=== PATIENT | male | born 1965 | race Two or more races ===

== ENCOUNTER 2018-03-25 11:23 | Inpatient (IN) | payer OTHER ==
[2018-03-25 13:45] VITALS: BMI 23.0
--- NOTE | 2018-03-25 16:26 | HP ---
CIWA Score - CIWA Score Nausea/Vomitin-Mild Nausea/No Vomiting Muscle Tremors: 2 Anxiety: 3 Agitation: 1-Slight > Activity Paroxysmal Sweats: 1-Minimal Palms Moist Orientation: 0-Oriented Tacttile Disturbances: 1-Very Mild Itch/Numbness Auditory Disturbances: 0-None Visual Disturbances: 0-None Headache: 3-Moderate CIWA-Ar Total Score: 12 Admission ROS S - HPI Chief Complaint: ETOH withdrawal symptoms Allergies/Adverse Reactions: Allergies Allergy/AdvReac Type Severity Reaction Status Date / Time No Known Allergies Allergy Verified 03/25/18 14:14 History of Present Illness: Patient present with ETOH withdrawal symptoms. Patient started drinking at age 12. Drinks up to 1/2 gallon of Rum daily. Denies seizures from ETOH withdrawal/ use. Denies significant PMH/PSH. This is patients first attempt at detox. Denies SI/HI and suicide attempts. Last drink was last night. Exam Limitations: No Limitations - Ebola screening Have you traveled outside of the country in the last 21 days: No (N) Have you had contact with anyone from an Ebola affected area: No Have you been sick,other than usual withdrawal symptoms: No Do you have a fever: No - Review of Systems Constitutional: Night Sweats, Changes in sleep EENT: reports: No Symptoms Reported Respiratory: reports: No Symptoms reported Cardiac: reports: No Symptoms Reported GI: reports: Nausea, Poor Fluid Intake, Abdominal cramping : reports: No Symptoms Reported Musculoskeletal: reports: Back Pain, Muscle Pain Integumentary: reports: Sweating Neuro: reports: Headache, Tremors Endocrine: reports: No Symptoms Reported Hematology: reports: No Symptoms Reported Psychiatric: reports: Orientated x3, Anxious, Depressed Patient History - Patient Medical History Hx Anemia: No Hx Asthma: No Hx Chronic Obstructive Pulmonary Disease (COPD): No Hx Cancer: No Hx Cardiac Disorders: No Hx Congestive Heart Failure: No Hx Hypertension: No Hx Hypercholesterolemia: No Hx Pacemaker: No HX Cerebrovascular Accident: No Hx Seizures: No Hx Dementia: No Hx Diabetes: No Hx Gastrointestinal Disorders: No Hx Liver Disease: No Hx Genitourinary Disorders: No Hx Sexually Transmitted Disorders: No Hx Renal Disease (ESRD): No Hx Thyroid Disease: No Hx Human Immunodeficiency Virus (HIV): No Hx Hepatitis C: No Hx Depression: No Hx Suicide Attempt: No Hx Bipolar Disorder: No Hx Schizophrenia: No - Patient Surgical History Past Surgical History: No Hx Neurologic Surgery: No Hx Cataract Extraction: No Hx Cardiac Surgery: No Hx Lung Surgery: No Hx Breast Surgery: No Hx Breast Biopsy: No Hx Abdominal Surgery: No Hx Appendectomy: No Hx Cholecystectomy: No Hx Genitourinary Surgery: No Hx Orthopedic Surgery: No Anesthesia Reaction: No - PPD History Previous Implant?: Yes Documented Results: Negative w/o proof Implanted On Prior [facility] Admission?: No PPD to be Administered?: Yes - Smoking Cessation Smoking history: Never smoked Hx Chewing Tobacco Use: No Initiated information on smoking cessation: No - Substance & Tx. History Hx Alcohol Use: Yes Hx Substance Use: No Substance Use Type: Alcohol Hx Substance Use Treatment: No - Substances Abused Alcohol-domenic Route: Oral Frequency: Daily Amount used: 2 pts. Age of first use: 12 Date of Last Use: 03/24/18 Family Disease History - Family Disease History Family History: Denies Admission Physical Exam [facility] - Vital Signs Vital Signs: Vital Signs - 24 hr 03/25/18 13:43 Temperature 98.2 F Pulse Rate 73 Respiratory 14 Rate Blood Pressure 151/95 - Physical General Appearance: Yes: No Apparent Distress, Nourished, Appropriately Dressed , Alcohol on Breath, Tremorous, Anxious HEENTM: Yes: EOMI, Hearing grossly Normal, Normal ENT Inspection, Normocephalic , Normal Voice, LANDY, Pharynx Normal Respiratory: Yes: Chest Non-Tender, Lungs Clear, Normal Breath Sounds, No Respiratory Distress, No Accessory Muscle Use Neck: Yes: No masses,lesions,Nodules, Supple Breast: Yes: Breast Exam Deferred Cardiology: Yes: Regular Rhythm, Regular Rate, S1, S2 Abdominal: Yes: Normal Bowel Sounds, Non Tender, Flat, Soft Genitourinary: Yes: Within Normal Limits Back: Yes: Normal Inspection, Muscle Spasm Musculoskeletal: Yes: full range of Motion, Gait Steady, Back pain Extremities: Yes: Normal Inspection, Normal Range of Motion, Non-Tender, Tremors 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
[2018-03-25] MEDS ORDERED: IBUPROFEN 400 MG TABLET (FP) PO PRN (16:34)
[2018-03-25] MEDS ORDERED: LOPERAMIDE HCL 2 MG CAPSULE PO PRN (16:34)
[2018-03-25] MEDS ORDERED: ACETAMINOPHEN 325 MG TABLET (FP) PO PRN (16:34)
[2018-03-25] MEDS ORDERED: MAG HYDROX/AL HYDROX/SIMETH 30 ML UNIT-DOSE CUP PO PRN (16:34)
[2018-03-25] MEDS ORDERED: MAGNESIUM HYDROX 2400MG/30ML ORAL SUSPENSION 30 ML CUP PO PRN (16:34)
[2018-03-25] MEDS ORDERED: MENTHOL/PHENOL 1 EACH UD MM PRN (16:34)
[2018-03-25] MEDS ORDERED: hydrOXYzine PAMOATE 50 MG CAPSULE (FP) PO PRN (16:34)
[2018-03-25] MEDS ORDERED: guaiFENesin/D-METHORPHAN HB 10 ML UNIT-DOSE CUPS PO PRN (16:34)
[2018-03-25] MEDS ORDERED: MAGNESIUM CITRATE 300 ML BOTTLE PO PRN (16:34)
[2018-03-25] MEDS ORDERED: P-EPHED 60MG/TRIPROLIDI 2.5MG TABLET PO PRN (16:34)
[2018-03-25] MEDS ORDERED: chlordiazePOXIDE HCL 25 MG CAPSULE PO PRN (16:36)
[2018-03-25] MEDS ORDERED: chlordiazePOXIDE HCL 25 MG CAPSULE PO ONE (18:30)
[2018-03-25] MEDS ORDERED: MELATONIN 5 MG TABLETS PO PRN (22:00)
[2018-03-25] MEDS: THIAMINE HCL 100 MG TABLET (FP) PO SCH (22:19)
[2018-03-25] MEDS: chlordiazePOXIDE HCL 25 MG CAPSULE PO SCH (22:19)
[2018-03-25 23:28] LABS: URINE APPEARANCE CLEAR; URINE BILIRUBIN NEGATIVE (<2.0 mg/dL); URINE BLOOD 1+ (NEGATIVE); URINE COLOR LTYELLOW; URINE GLUCOSE (UA) NEGATIVE (NEGATIVE); URINE KETONE NEGATIVE (NEGATIVE); URINE LEUK ESTERASE NEGATIVE (NEGATIVE); URINE NITRITE NEGATIVE (NEGATIVE); URINE PROTEIN NEGATIVE (NEGATIVE); URINE UROBILINOGEN NEGATIVE mg/dL (0.2-1.0)
[2018-03-25 23:33] LABS: EPI CELLS RARE /HPF (FEW); URINE HYALINE CAST 3 /lpf; URINE MUCUS RARE
[2018-03-26] MEDS: chlordiazePOXIDE HCL 25 MG CAPSULE PO SCH ×4 (06:25→22:20)
[2018-03-26] MEDS: PRENATAL VITAMINS W/ FOLIC ACID TABLET (FP) PO SCH (10:07)
[2018-03-26 10:11] LABS: HEMATOCRIT 44.9 % (35.4-49); MCH 34.1 pg (25.7-33.7); MCHC 33.3 g/dl (32.0-35.9); MEAN CELL VOLUME 102.4 fl (80-96); MEAN PLT VOLUME 8.7 fl (7.5-11.1); PLATELET COUNT 179 K/MM3 (134-434); RBC 4.38 M/mm3 (4.00-5.60); RDW 13.7 % (11.9-15.9); WHITE BLOOD COUNT 3.2 K/mm3 (4.0-10.0)
[2018-03-26 10:51] LABS: CHLORIDE 100 mmol/L (98-107); POTASSIUM 4.1 mmol/L (3.5-5.1); SODIUM 140 mmol/L (136-145)
[2018-03-26 12:25] LABS: ALBUMIN 4.5 g/dl (3.4-5.0); ALK PHOS 73 U/L (45-117); ANION GAP 11 (8-16); BILIRUBIN,TOTAL 0.8 mg/dL (0.2-1.0); BLOOD UREA NITROGEN 14 mg/dL (7-18); CALCIUM 9.2 mg/dL (8.5-10.1); CO2 29 mmol/L (21-32); CREATININE 0.9 mg/dL (0.7-1.3); GLUCOSE,RANDOM 91 mg/dL (74-106); SGOT/AST 60 U/L (15-37); SGPT/ALT 59 U/L (12-78); TOT PROT 8.2 g/dl (6.4-8.2)
--- NOTE | 2018-03-26 12:25 | EKG ---
Test Reason : Blood Pressure : / mmHG Vent. Rate : 069 BPM Atrial Rate : 069 BPM P-R Int : 138 ms QRS Dur : 090 ms QT Int : 400 ms P-R-T Axes : 072 021 069 degrees QTc Int : 428 ms NORMAL SINUS RHYTHM NORMAL ECG NO PREVIOUS ECGS AVAILABLE Confirmed by MD CARSON, RANJIT ([id number]) on 03/26/2018 12:24:53 PM Referred By: Confirmed By:RANJIT BYRD MD
--- NOTE | 2018-03-26 12:59 | CONSULT ---
[facility] Psychiatric Consult - Data Date of interview: 03/26/18 Admission source: [facility] Identifying data: Patient is a 53 year old [place] male, father of two, unemployed, homeless, and receives financial assistance from his sister. This is patient's first admission to detox. Pt. admitted to for alcohol dependence. Substance Abuse History: Smoking Cessation. Smoking history: Never smoked. Hx Chewing Tobacco Use: No. Initiated information on smoking cessation: No. - Substance & Tx. History. Hx Alcohol Use: Yes. Hx Substance Use: No. Substance Use Type: Alcohol. Hx Substance Use Treatment: No. - Substances Abused. Alcohol-domenic. Route: Oral. Frequency: Daily. Amount used: 2 pts. Age of first use: 12. Date of Last Use: 03/24/18 Medical History: Denies. Psychiatric History: Patient denies h/o psychiatric hospitalization, outpatient care, and suicide attempt. Physical/Sexual Abuse/Trauma History: Denies. Mental Status Exam - Mental Status Exam Alert and Oriented to: Time, Place, Person Cognitive Function: Good Patient Appearance: Well Groomed Mood: Euthymic Affect: Mood Congruent Patient Behavior: Appropriate, Cooperative Speech Pattern: Clear, Appropriate (Korean speaking only. ) Voice Loudness: Normal Thought Process: Intact, Goal Oriented Thought Disorder: Not Present Hallucinations: Denies Suicidal Ideation: Denies Homicidal Ideation: Denies Insight/Judgement: Poor Sleep: Fair Appetite: Good Muscle strength/Tone: Normal Gait/Station: Other (Did not observe patient's gait.) Psychiatric Findings - Problem List ([place] 1, 2,3) (1) Alcohol dependence with uncomplicated withdrawal Current Visit: Yes Status: Acute - Initial Treatment Plan Initial Treatment Plan: Psychoeducation provided. Detoxification in progress. Observation.
--- NOTE | 2018-03-26 13:36 | PN ---
[facility] CIWA - CIWA Score Nausea/Vomitin-No Nausea/No Vomiting Muscle Tremors: 2 Anxiety: 4-Mod. Anxious/Guarded Agitation: 3 Paroxysmal Sweats: 2 Orientation: 0-Oriented Tacttile Disturbances: 2-Mild Itch/Numbness/Burn Auditory Disturbances: 0-None Visual Disturbances: 1-Very Mild Sensitivity Headache: 0-None Present CIWA-Ar Total Score: 14 S Progress Note (SOAP) Subjective: Anxious, Tremors, Interrupted Sleep, Fatigue. Objective: PATIENT A & O X 3, OBSERVED AMBULATING ON UNIT. NO ACUTE DISTRESS. PATIENT DENIES CHEST PAIN. 03/26/18 13:37 Vital Signs Temperature 97.3 F L 03/26/18 09:07 Pulse Rate 67 03/26/18 09:07 Respiratory Rate 8 L 03/26/18 09:07 Blood Pressure 147/95 03/26/18 09:07 O2 Sat by Pulse Oximetry (%) Laboratory Tests 03/25/18 03/26/18 03/26/18 22:30 05:50 05:50 WBC 3.2 L RBC 4.38 Hgb 15.0 Hct 44.9 MCV 102.4 H MCH 34.1 H MCHC 33.3 RDW 13.7 Plt Count 179 MPV 8.7 Sodium 140 Potassium 4.1 Chloride 100 Carbon Dioxide 29 Anion Gap 11 BUN 14 Creatinine 0.9 Creat Clearance w eGFR > 60 Random Glucose 91 Calcium 9.2 Total Bilirubin 0.8 AST 60 H ALT 59 Alkaline Phosphatase 73 Total Protein 8.2 Albumin 4.5 Urine Color Ltyellow Urine Appearance Clear Urine pH 5.0 Ur Specific [place] 1.017 Urine Protein Negative Urine Glucose (UA) Negative Urine Ketones Negative Urine Blood 1+ H Urine Nitrite Negative Urine Bilirubin Negative Urine Urobilinogen Negative Ur Leukocyte Esterase Negative Urine WBC (Auto) 1 Urine RBC (Auto) 2 Ur Epithelial Cells Rare Hyaline Casts 3 Urine Mucus Rare LABS NOTED. RPR, HIV AB RESULTS PENDING. 03/26/18 13:39 Assessment: 03/26/18 13:38 WITHDRAWAL SYMPTOMS. LEUKOPENIA. 03/26/18 13:39 Plan: CONTINUE DETOX.
[2018-03-26] MEDS: THIAMINE HCL 100 MG TABLET (FP) PO SCH (22:20)
[2018-03-27] MEDS: chlordiazePOXIDE HCL 25 MG CAPSULE PO SCH ×3 (06:29→17:32)
[2018-03-27] MEDS: PRENATAL VITAMINS W/ FOLIC ACID TABLET (FP) PO SCH (10:13)
--- NOTE | 2018-03-27 11:25 | PN ---
[facility] CIWA - CIWA Score Nausea/Vomitin-No Nausea/No Vomiting Muscle Tremors: 4-Moderate,w/Arms Extend Anxiety: 2 Agitation: 0-Normal Activity Paroxysmal Sweats: No Perspiration Orientation: 0-Oriented Tacttile Disturbances: 2-Mild Itch/Numbness/Burn Auditory Disturbances: 0-None Visual Disturbances: 3-Moderate Sensitivity Headache: 0-None Present CIWA-Ar Total Score: 11 S Progress Note (SOAP) Subjective: Tremors, Fatigue, Anxious. Objective: PATIENT A & O X 3. NO ACUTE DISTRESS. 03/27/18 11:27 Vital Signs Temperature 98.2 F 03/27/18 09:26 Pulse Rate 66 03/27/18 09:26 Respiratory Rate 18 03/27/18 09:26 Blood Pressure 138/84 03/27/18 09:26 O2 Sat by Pulse Oximetry (%) Laboratory Tests 03/25/18 03/26/18 03/26/18 22:30 05:50 05:50 WBC 3.2 L RBC 4.38 Hgb 15.0 Hct 44.9 MCV 102.4 H MCH 34.1 H MCHC 33.3 RDW 13.7 Plt Count 179 MPV 8.7 Sodium 140 Potassium 4.1 Chloride 100 Carbon Dioxide 29 Anion Gap 11 BUN 14 Creatinine 0.9 Creat Clearance w eGFR > 60 Random Glucose 91 Calcium 9.2 Total Bilirubin 0.8 AST 60 H ALT 59 Alkaline Phosphatase 73 Total Protein 8.2 Albumin 4.5 Urine Color Ltyellow Urine Appearance Clear Urine pH 5.0 Ur Specific [place] 1.017 Urine Protein Negative Urine Glucose (UA) Negative Urine Ketones Negative Urine Blood 1+ H Urine Nitrite Negative Urine Bilirubin Negative Urine Urobilinogen Negative Ur Leukocyte Esterase Negative Urine WBC (Auto) 1 Urine RBC (Auto) 2 Ur Epithelial Cells Rare Hyaline Casts 3 Urine Mucus Rare RPR Titer HIV 1&2 Antibody Screen HIV P24 Antigen 03/26/18 03/26/18 05:50 05:50 WBC RBC Hgb Hct MCV MCH MCHC RDW Plt Count MPV Sodium Potassium Chloride Carbon Dioxide Anion Gap BUN Creatinine Creat Clearance w eGFR Random Glucose Calcium Total Bilirubin AST ALT Alkaline Phosphatase Total Protein Albumin Urine Color Urine Appearance Urine pH Ur Specific [place] Urine Protein Urine Glucose (UA) Urine Ketones Urine Blood Urine Nitrite Urine Bilirubin Urine Urobilinogen Ur Leukocyte Esterase Urine WBC (Auto) Urine RBC (Auto) Ur Epithelial Cells Hyaline Casts Urine Mucus RPR Titer Nonreactive HIV 1&2 Antibody Screen Negative HIV P24 Antigen Negative LABS NOTED. Assessment: 03/27/18 11:27 WITHDRAWAL SYMPTOMS. Plan: CONTINUE DETOX. ENCOURAGE AMBULATION.
[2018-03-27] MEDS: chlordiazePOXIDE 5 MG CAPSULE PO SCH (22:22)
[2018-03-27] MEDS: THIAMINE HCL 100 MG TABLET (FP) PO SCH (22:22)
[2018-03-28] MEDS: chlordiazePOXIDE 5 MG CAPSULE PO SCH ×3 (05:44→17:32)
[2018-03-28] MEDS: PRENATAL VITAMINS W/ FOLIC ACID TABLET (FP) PO SCH (10:17)
--- NOTE | 2018-03-28 11:56 | PN ---
[facility] Progress Note (SOAP) Subjective: Fatigue, Sweating. Objective: PATIENT A & O X 3, OBSERVED AMBULATING ON UNIT. NO ACUTE DISTRESS. 03/28/18 11:54 Vital Signs Temperature 96.9 F L 03/28/18 09:19 Pulse Rate 67 03/28/18 09:19 Respiratory Rate 18 03/28/18 09:19 Blood Pressure 111/73 03/28/18 09:19 O2 Sat by Pulse Oximetry (%) Laboratory Tests 03/25/18 03/26/18 03/26/18 22:30 05:50 05:50 WBC 3.2 L RBC 4.38 Hgb 15.0 Hct 44.9 MCV 102.4 H MCH 34.1 H MCHC 33.3 RDW 13.7 Plt Count 179 MPV 8.7 Sodium 140 Potassium 4.1 Chloride 100 Carbon Dioxide 29 Anion Gap 11 BUN 14 Creatinine 0.9 Creat Clearance w eGFR > 60 Random Glucose 91 Calcium 9.2 Total Bilirubin 0.8 AST 60 H ALT 59 Alkaline Phosphatase 73 Total Protein 8.2 Albumin 4.5 Urine Color Ltyellow Urine Appearance Clear Urine pH 5.0 Ur Specific [place] 1.017 Urine Protein Negative Urine Glucose (UA) Negative Urine Ketones Negative Urine Blood 1+ H Urine Nitrite Negative Urine Bilirubin Negative Urine Urobilinogen Negative Ur Leukocyte Esterase Negative Urine WBC (Auto) 1 Urine RBC (Auto) 2 Ur Epithelial Cells Rare Hyaline Casts 3 Urine Mucus Rare RPR Titer HIV 1&2 Antibody Screen HIV P24 Antigen 03/26/18 03/26/18 05:50 05:50 WBC RBC Hgb Hct MCV MCH MCHC RDW Plt Count MPV Sodium Potassium Chloride Carbon Dioxide Anion Gap BUN Creatinine Creat Clearance w eGFR Random Glucose Calcium Total Bilirubin AST ALT Alkaline Phosphatase Total Protein Albumin Urine Color Urine Appearance Urine pH Ur Specific [place] Urine Protein Urine Glucose (UA) Urine Ketones Urine Blood Urine Nitrite Urine Bilirubin Urine Urobilinogen Ur Leukocyte Esterase Urine WBC (Auto) Urine RBC (Auto) Ur Epithelial Cells Hyaline Casts Urine Mucus RPR Titer Nonreactive HIV 1&2 Antibody Screen Negative HIV P24 Antigen Negative LABS NOTED. Assessment: 03/28/18 11:54 WITHDRAWAL SYMPTOMS. Plan: CONTINUE DETOX. ENCOURAGE AMBULATION. INCREASE DAILY PO FLUID INTAKE. PATIENT SCHEDULED FOR D/C TOMORROW.
[2018-03-28] MEDS: chlordiazePOXIDE HCL 10 MG CAPSULE PO SCH (22:19)
[2018-03-28] MEDS: THIAMINE HCL 100 MG TABLET (FP) PO SCH (22:19)
[2018-03-29] MEDS: chlordiazePOXIDE HCL 10 MG CAPSULE PO SCH (06:09)
[2018-03-29 06:21] VITALS: BP 103/71; PULSE 75; TEMP 97.1
--- NOTE | 2018-03-29 20:00 | PN ---
[facility] Progress Note (SOAP) Subjective: Patient denies current Detox symptoms and reports that he feels well overall. Objective: PATIENT A & O X 3, OBSERVED AMBULATING ON UNIT. NO ACUTE DISTRESS. 03/29/18 19:59 Vital Signs Temperature 97.1 F L 03/29/18 06:21 Pulse Rate 75 03/29/18 06:21 Respiratory Rate 16 03/29/18 06:21 Blood Pressure 103/71 03/29/18 06:21 O2 Sat by Pulse Oximetry (%) Laboratory Tests 03/25/18 03/26/18 03/26/18 22:30 05:50 05:50 WBC 3.2 L RBC 4.38 Hgb 15.0 Hct 44.9 MCV 102.4 H MCH 34.1 H MCHC 33.3 RDW 13.7 Plt Count 179 MPV 8.7 Sodium 140 Potassium 4.1 Chloride 100 Carbon Dioxide 29 Anion Gap 11 BUN 14 Creatinine 0.9 Creat Clearance w eGFR > 60 Random Glucose 91 Calcium 9.2 Total Bilirubin 0.8 AST 60 H ALT 59 Alkaline Phosphatase 73 Total Protein 8.2 Albumin 4.5 Urine Color Ltyellow Urine Appearance Clear Urine pH 5.0 Ur Specific [place] 1.017 Urine Protein Negative Urine Glucose (UA) Negative Urine Ketones Negative Urine Blood 1+ H Urine Nitrite Negative Urine Bilirubin Negative Urine Urobilinogen Negative Ur Leukocyte Esterase Negative Urine WBC (Auto) 1 Urine RBC (Auto) 2 Ur Epithelial Cells Rare Hyaline Casts 3 Urine Mucus Rare RPR Titer HIV 1&2 Antibody Screen HIV P24 Antigen 03/26/18 03/26/18 05:50 05:50 WBC RBC Hgb Hct MCV MCH MCHC RDW Plt Count MPV Sodium Potassium Chloride Carbon Dioxide Anion Gap BUN Creatinine Creat Clearance w eGFR Random Glucose Calcium Total Bilirubin AST ALT Alkaline Phosphatase Total Protein Albumin Urine Color Urine Appearance Urine pH Ur Specific [place] Urine Protein Urine Glucose (UA) Urine Ketones Urine Blood Urine Nitrite Urine Bilirubin Urine Urobilinogen Ur Leukocyte Esterase Urine WBC (Auto) Urine RBC (Auto) Ur Epithelial Cells Hyaline Casts Urine Mucus RPR Titer Nonreactive HIV 1&2 Antibody Screen Negative HIV P24 Antigen Negative LABS NOTED. Assessment: 03/29/18 19:59 COMPLETION OF DETOX REGIMEN. Plan: PATIENT SCHEDULED FOR DISCHARGE FROM DETOX UNIT TODAY.
--- NOTE | 2018-03-29 20:04 | DS ---
[facility] Detox Discharge Summary Admission Date: 03/25/18 Discharge Date: 03/29/18 - History Present History: Alcohol Dependence Additional Comments: PATIENT DECLINES AFTERCARE REFERRAL AT THIS TIME. ADVISED TO CONSIDER LOCAL 12- STEP / AA OUTPATIENT SUPPORT GROUP PROGRAMS FOR AFTERCARE. PATIENT WAS DISCHARGED FROM DETOX UNIT IN STABLE MEDICAL CONDITION. Pertinent Past History: Depression, Anxiety. - Physical Exam Results Vital Signs: Vital Signs Temperature 97.1 F L 03/29/18 06:21 Pulse Rate 75 03/29/18 06:21 Respiratory Rate 16 03/29/18 06:21 Blood Pressure 103/71 03/29/18 06:21 O2 Sat by Pulse Oximetry (%) Pertinent Admission Physical Exam Findings: WITHDRAWAL SYMPTOMS. Laboratory Tests 03/25/18 03/26/18 03/26/18 22:30 05:50 05:50 WBC 3.2 L RBC 4.38 Hgb 15.0 Hct 44.9 MCV 102.4 H MCH 34.1 H MCHC 33.3 RDW 13.7 Plt Count 179 MPV 8.7 Sodium 140 Potassium 4.1 Chloride 100 Carbon Dioxide 29 Anion Gap 11 BUN 14 Creatinine 0.9 Creat Clearance w eGFR > 60 Random Glucose 91 Calcium 9.2 Total Bilirubin 0.8 AST 60 H ALT 59 Alkaline Phosphatase 73 Total Protein 8.2 Albumin 4.5 Urine Color Ltyellow Urine Appearance Clear Urine pH 5.0 Ur Specific [place] 1.017 Urine Protein Negative Urine Glucose (UA) Negative Urine Ketones Negative Urine Blood 1+ H Urine Nitrite Negative Urine Bilirubin Negative Urine Urobilinogen Negative Ur Leukocyte Esterase Negative Urine WBC (Auto) 1 Urine RBC (Auto) 2 Ur Epithelial Cells Rare Hyaline Casts 3 Urine Mucus Rare RPR Titer HIV 1&2 Antibody Screen HIV P24 Antigen 03/26/18 03/26/18 05:50 05:50 WBC RBC Hgb Hct MCV MCH MCHC RDW Plt Count MPV Sodium Potassium Chloride Carbon Dioxide Anion Gap BUN Creatinine Creat Clearance w eGFR Random Glucose Calcium Total Bilirubin AST ALT Alkaline Phosphatase Total Protein Albumin Urine Color Urine Appearance Urine pH Ur Specific [place] Urine Protein Urine Glucose (UA) Urine Ketones Urine Blood Urine Nitrite Urine Bilirubin Urine Urobilinogen Ur Leukocyte Esterase Urine WBC (Auto) Urine RBC (Auto) Ur Epithelial Cells Hyaline Casts Urine Mucus RPR Titer Nonreactive HIV 1&2 Antibody Screen Negative HIV P24 Antigen Negative LABS NOTED. - Treatment Hospital Course: Detox Protocol Followed, Detoxed Safely, Responded well, Discharged Condition Good Patient has Accepted a Rehab Referral to: PATIENT ADVISED TO CONSIDER LOCAL 12- STEP/AA OUTPATIENT SUPPORT GROUPS. - Medication Discharge Medications: Ambulatory Orders NK [No Known Home Medication] 03/25/18 - Diagnosis (1) Alcohol dependence with uncomplicated withdrawal Status: Acute (2) Anxiety Status: Suspected (3) Depressed affect Status: Suspected - AMA Did Patient Leave Against Medical Advice: No
== END 2018-03-29 09:06 | disposition home or self-care (01) | DRG 775 ==
LOC: YASAS 11:23 → Y3N 18:00
PROVIDERS: ADMIT Surgery; ATTEND Surgery
PROC: HZ2ZZZZ Detoxification Services for Substance Abuse Treatment (ICD-10-PCS; principal; 2018-03-25)
DX: F10.230 Alcohol dependence with withdrawal, uncomplicated (principal); F41.9 Anxiety disorder, unspecified; F32.9 Major depressive disorder, single episode, unspecified; D72.819 Decreased white blood cell count, unspecified
CPT/HCPCS: 36415; 80053; 81003; 81015; 85027; 86593; 87389; 93005; 93010